=== PATIENT | male | born 1960 | race Caucasian/White ===

== ENCOUNTER 2016-08-30 14:16 | Emergency (ER) | payer OTHER ==
[~2016-08-30] VITALS: Ht 170.2 cm; Wt 77.1 kg
--- NOTE | 2016-08-30 14:28 | NUR ---
PT TO RADIOLOGY FOR HEAD CT SCAN VIA [facility].
--- NOTE | 2016-08-30 14:28 | NUR ---
SEEN AND ASSESSED BY CANDIDA NELSON; LACERATION SET UP AT BEDSIDE
--- NOTE | 2016-08-30 14:28 | NUR ---
ASSUME PT CARE. PRESENTS W/ FOREHEAD LACERATION APPROX 5CM W/ MINIMAL BLEEDING NOTED. PER REPORT PT FELL OFF HIS BUNK BED. CANT RECALL WHAT HAPPEN. PT IS VERBALLY RESPONSIVE. MODERATE PAIN. STABLE VITALS. AWAITING MD GUERRA.
[2016-08-30] MEDS ORDERED: TDAP [DIPH/PERTUSSIS/TET] 0.5 ML VIAL IM ONE ×2 (14:30→14:53)
[2016-08-30] MEDS ORDERED: LIDOCAINE 2%-EPI 1:100,000 30 ML VIAL TP ONE (14:30)
--- NOTE | 2016-08-30 14:44 | NUR ---
BARBER NELSON BACK AT BEDSIDE FOR LAC REPAIR.
--- NOTE | 2016-08-30 15:20 | NUR ---
LAC REPAIR DONE. 6 SUTURES NOTED. PT TOLERATED PROCEDURE WELL.
--- NOTE | 2016-08-30 15:29 | NUR ---
MEDICALLY CLEARED. D/C TO PD IN STABLE CONDITION.
[2016-08-30 15:30] VITALS: BP 142/73
== END 2016-08-30 15:31 ==
LOC: ER 14:20
DX: S01.81XA Laceration without foreign body of other part of head, initial encounter (principal); W06.XXXA Fall from bed, initial encounter; Y93.84 Activity, sleeping; Y92.143 Cell of prison as the place of occurrence of the external cause; Y99.8 Other external cause status; B19.20 Unspecified viral hepatitis C without hepatic coma; F17.210 Nicotine dependence, cigarettes, uncomplicated
CPT/HCPCS: 70450-TC; 90715; A4606; A6402; Z7610